=== PATIENT | female | born 1955 | race Caucasian/White ===

== ENCOUNTER 2020-10-09 17:08 | Emergency (ER) | payer MEDICARE ==
[2020-10-09] MEDS ORDERED: cefTRIAXone 1 GM Vial IM ONE (18:08)
--- NOTE | 2020-10-09 18:10 | EDM.PDOC ---
ED HPI GENERAL MEDICAL PROBLEM - General Chief Complaint: Genitourinary Problem Stated Complaint: POSSIBLE UTI Time Seen by Provider: 10/09/20 18:09 Source of Information: Reports: Patient History Limitations: Reports: No Limitations - History of Present Illness INITIAL COMMENTS - FREE TEXT/NARRATIVE: pt was treated for 1 week with cephelexin nd did not feel she was improving. She now is very symptomatic again. She did have some chilling this pm. Onset: Gradual Duration: Day(s): Location: Reports: Abdomen, Back Associated Symptoms: Reports: Weakness - Related Data Allergies Allergy/AdvReac Type Severity Reaction Status Date / Time ciprofloxacin [From Cipro] Allergy Other Verified 10/09/20 17:29 Home Meds: Home Meds Calcitriol 1 tab PO TID 10/09/20 [History] Levothyroxine [Synthroid] 50 mcg PO ACBREAKFAST 10/09/20 [History] Meloxicam 15 mg PO DAILY 10/09/20 [History] Past Medical History HEENT History: Reports: Impaired Vision Genitourinary History: Reports: None [employer] History: Reports: Musculoskeletal History: Reports: Osteoporosis Endocrine/Metabolic History: Reports: Hypothyroidism - Past Surgical History Head Surgeries/Procedures: Reports: None HEENT Surgical History: Reports: None Female Surgical History: Reports: Hysterectomy Endocrine Surgical History: Reports: Thyroidectomy Musculoskeletal Surgical History: Reports: None Dermatological Surgical History: Reports: None Social & Family History - Tobacco Use Tobacco Use Status *Q: Never Tobacco User Second Hand Smoke Exposure: No - Caffeine Use Caffeine Use: Reports: None - Recreational Drug Use Recreational Drug Use: No ED ROS GENERAL - Review of Systems Review Of Systems: See Below Constitutional: Reports: Chills, Fatigue HEENT: Reports: No Symptoms Respiratory: Reports: No Symptoms Cardiovascular: Reports: No Symptoms Endocrine: Reports: No Symptoms GI/Abdominal: Reports: No Symptoms : Reports: Dysuria, Frequency, Hematuria, Urgency Musculoskeletal: Reports: No Symptoms Skin: Reports: No Symptoms Neurological: Reports: No Symptoms Psychiatric: Reports: No Symptoms ED EXAM, GI/ABD - Physical Exam Exam: See Below Text/Narrative:: pt arrived unomfortable and having some chills. She feels her UTI has returned. Exam Limited By: No Limitations General Appearance: Alert, Anxious, Mild Distress (Female) Exam: Other (no back or abdomanal pain) Neurological: Alert, Oriented, Normal Cognition Course - Vital Signs Last Recorded V/S: Last Vital Signs Temp 36.6 C 10/09/20 17:34 Pulse 84 10/09/20 17:34 Resp 16 10/09/20 17:34 BP 162/98 H 10/09/20 17:34 Pulse Ox 97 10/09/20 17:34 - Orders/Labs/Meds Labs: Laboratory Tests 10/09/20 Range/Units 17:38 Urine Color Red A (YELLOW) Urine Appearance Turbid A (CLEAR) Urine pH 7.0 (5.0-8.0) Ur Specific Benjamin 1.025 (1.008-1.030) Urine Protein 100 H (NEGATIVE) mg/dL Urine Glucose (UA) Negative (NEGATIVE) mg/dL Urine Ketones Negative (NEGATIVE) mg/dL Urine Occult Blood Large H (NEGATIVE) Urine Nitrite Negative (NEGATIVE) Urine Bilirubin Negative (NEGATIVE) Urine Urobilinogen 0.2 (0.2-1.0) EU/dL Ur Leukocyte Esterase Large H (NEGATIVE) Urine RBC Packed H (0-5) Urine WBC Packed H (0-5) Ur Epithelial Cells Rare Amorphous Sediment Few Urine Bacteria Moderate Urine Mucus Not seen Meds: Medications Discontinued Medications Generic Name Dose Route Start Last Admin Trade Name Freq PRN Reason Stop Dose Admin Ceftriaxone Sodium 1 gm 10/09/20 18:08 Rocephin IM 10/09/20 18:09 ONETIME ONE - Re-Assessments/Exams Free Text/Narrative Re-Assessment/Exam: 10/09/20 18:15 pt has a very infected urine with alot of hematuria. Departure - Departure Time of Disposition: 18:09 Disposition: Home, Self-Care 01 Condition: Fair Clinical Impression: Recurrent UTI - Discharge Information Referrals: PCP,None [Primary Care Provider] - Forms: ED Department Discharge Care Plan Goals: push fluids, bactrim ds 1 tab bid. will notif of culture. If not improving may need some further studies. Sepsis Event Note (ED) - Evaluation Sepsis Screening Result: No Definite Risk - Focused Exam Vital Signs: Vital Signs Temp Pulse Resp BP Pulse Ox 10/09/20 17:34 36.6 C 84 16 162/98 H 97 10/09/20 17:33 36.6 C 84 16 162/98 H 97
== END 2020-10-09 18:36 | disposition home or self-care (01) ==
LOC: JP.ED 17:08
DX: N39.0 Urinary tract infection, site not specified (principal); E03.9 Hypothyroidism, unspecified; Z79.899 Other long term (current) drug therapy; Z88.1 Allergy status to other antibiotic agents
CPT/HCPCS: 81001; 87086; 96372; 99283; J0696